=== PATIENT | male | born 1980 ===

== ENCOUNTER 2017-11-29 11:25 | Emergency (ER) | payer SELFPAY ==
[2017-11-29 12:41] VITALS: BP 157/92; PULSE 83; RESP 20; TEMP 97.9; O2SAT 99
--- NOTE | 2017-11-29 15:03 | ED PDOC ---
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 States he fell 2 weeks ago and was seen at [place] [facility] for fracture to left humerus, had sling placed, and was advised to follow up with orthopedist. Patient has been unable to follow up since then, but has appointment next week in [place]. States he came to ER today to see if there was anything else he needed regarding treatment. Otherwise: (-) new injury/trauma, (-) increasing pain, (-) numbness, (-) weakness, (-) fever. PMD: None Past Medical History Reviewed: Historical Data, Nursing Documentation, Vital Signs Vital Signs: Last Vital Signs Temp 97.9 F 11/29/17 12:37 Pulse 83 11/29/17 12:37 Resp 20 11/29/17 12:37 BP 157/92 H 11/29/17 12:37 Pulse Ox 99 11/29/17 12:37 - Medical History PMH: No Chronic Diseases - Family History Family History: States: Unknown Family Hx - Social History Current smoker - smoking cessation education provided: No Alcohol: None Drugs: Denies - Immunization History Hx Tetanus Toxoid Vaccination: No Hx Influenza Vaccination: No Hx Pneumococcal Vaccination: No - Allergies Allergies/Adverse Reactions: Allergies Allergy/AdvReac Type Severity Reaction Status Date / Time No Known Allergies Allergy Verified 11/29/17 12:34 Review of Systems ROS Statement: Except As Marked, All Systems Reviewed And Found Negative Constitutional: Negative for: Fever Musculoskeletal: Positive for: Arm Pain (left). Negative for: Other (worsening pain) Neurological: Negative for: Weakness, Numbness Physical Exam - Reviewed Nursing Documentation Reviewed: Yes Vital Signs Reviewed: Yes - Physical Exam Comments: GENERAL APPEARANCE: Patient is awake, alert, oriented x 3, in no acute distress. SKIN: Warm, dry; (-) cyanosis. UPPER EXTREMITY: Left arm in sling; Normal ROM of wrist and all digits CARDIOVASCULAR: (+) distal pulse. NEUROLOGIC: (+) distal sensation. - ECG O2 Sat by Pulse Oximetry: 99 (RA) Pulse Ox Interpretation: Normal Medical Decision Making Medical Decision Making: Time: 14:00 Plan: Based on history and exam plan will be for outpatient follow up with orthopedist. property clerk was used to ensure patients understanding. Patient was advised he must follow up with orthopedist and there is no further ER intervention needed at this time. Scribe Attestation: Documented by Elizabeth Mitchell, acting as a scribe for Carol Rodriguez PA-C Provider Scribe Attestation: All medical record entries made by the Scribe were at my direction and personally dictated by me. I have reviewed the chart and agree that the record accurately reflects my personal performance of the history, physical exam, medical decision making, and the department course for this patient. I have also personally directed, reviewed, and agree with the discharge instructions and disposition. Disposition - Clinical Impression Clinical Impression: Humerus fracture - Patient ED Disposition Is Patient to be Admitted: No Counseled Patient/Family Regarding: Diagnosis, Need For Followup - Disposition Referrals: [facility] [Outside] Marquis Hernandez III, MD [Staff Provider] - Disposition: Routine/Home Disposition Time: 14:11 Condition: STABLE Instructions: Arm Fracture in Adults (ED) Forms: [employer] (Yoruba), [facility] ED School/Work Excuse Print Language: SAMOAN - POA Present On Arrival: None
== END 2017-11-29 14:42 | disposition home or self-care (01) ==
LOC: H.ER 11:25
DX: Z47.89 Encounter for other orthopedic aftercare (principal)